=== PATIENT | male | born 1990 | race Caucasian/White ===

== ENCOUNTER 2018-08-28 18:29 | Emergency (ER) | payer SELFPAY ==
--- NOTE | 2018-08-28 18:32 | ER Report ---
History and Physical Time Seen By MD: 18:30 HPI/ROS CHIEF COMPLAINT: had some suicidal thoughts earlier HISTORY OF PRESENT ILLNESS: This is a 28 year old male. He was told by his earlier today that she wanted a divorce. Had left home and walking around town. Did think about suicide briefly, but then said he would not do this. He went to the bar and had a shot. Went to a [facility] and talked with a emergency care tech who recommended that he come up to the hospital to work on getting further help. He has no thoughts of harming others. Thinking about things, he says that the divorce is probably due to his anger and temper and he needs to work on this. He plans to return to [place] with his father for a time. He is willing to do some outpatient counseling. Has no medical problems, although in talking with him it appears he has an undiagnosed Tourettes. His did call the police as he made a comment that was not suicidal, but more like 'life was not worth living' w ithout her, or something like that. REVIEW OF SYSTEMS: Respiratory: No cough, no dyspnea. Cardiovascular: No chest pain, no palpitations. Gastrointestinal: No vomiting, no abdominal pain. Musculoskeletal: No musculoskeletal pain. Allergies: Coded Allergies: No Known Drug Allergies (Unverified , 08/28/18) Home Meds No Active Prescriptions or Reported Meds Reviewed Nurses Notes: Yes Constitutional Vital Sign - Last 24 Hours 08/28/18 08/28/18 08/28/18 08/28/18 18:29 18:39 18:40 18:59 Temp 98.6 Pulse ??? 136 133 Resp 16 B/P (MAP) 119/104 (109) Pulse Ox 92 88 O2 Delivery Room Air 08/28/18 08/28/18 08/28/18 08/28/18 19:00 19:29 19:30 20:00 Pulse 116 B/P (MAP) 109/76 (87) 110/70 (83) 114/63 (80) Pulse Ox 89 08/28/18 20:00 B/P (MAP) 114/63 (80) Physical Exam General Appearance: Alert, anxious and upset about the situation, but cooperative and polite. Eyes: Pupils equal and round no injection. ENT: Normal oral mucosa. Moist mucous membranes. Respiratory: Breathing easily, clear. Cardiac: regular rate and rhythm, normal peripheral perfusion. Neuro: Alert and oriented x 3, no focal deficits. Some complex motor and auditory throat clearing tics noted. Skin: Warm and dry. No rashes or lesions. DIFFERENTIAL DIAGNOSIS: After history and physical exam differential diagnosis was considered for patient with what appears to be an acute adjustment reaction with stress. No suicidal or homicidal ideation. Medical Decision Making Data Points Laboratory Hematology Test 08/28/18 00:00 Urine Color Yellow Urine Clarity Slightly-cloudy Urine pH 5.0 pH (4.8-9.5) Urine Specific Devon 1.027 Urine Protein 100 mg/dL (NEGATIVE) Urine Glucose (UA) Negative mg/dL (NEGATIVE) Urine Ketones Trace mg/dL (NEGATIVE) Urine Blood Small (NEGATIVE) Urine Nitrite Negative (NEGATIVE) Urine Bilirubin Negative (NEGATIVE) Urine Urobilinogen Negative mg/dL (0.2-1.9) Urine Leukocyte Esterase Negative (NEGATIVE) Urine RBC 2 /HPF (0-2/HPF) Urine WBC 4 /HPF (0-5/HPF) Urine Squamous Epithelial Cells None /LPF (</=FEW) Urine Bacteria Negative /HPF (NONE-FEW) Urine Hyaline Casts Few /LPF (NONE-FEW) Urine Mucus Few /HPF (NONE-FEW) Urine Opiates Screen Negative Urine Barbiturates Screen Negative Ur Tricyclic Antidepressants Screen Negative Urine Phencyclidine Screen Negative Urine Amphetamines Screen Negative Urine Benzodiazepines Screen Negative Urine Cocaine Screen Negative Urine Cannabinoids Screen Negative Chemistry Test 08/28/18 00:00 Urine Color Yellow Urine Clarity Slightly-cloudy Urine pH 5.0 pH (4.8-9.5) Urine Specific Devon 1.027 Urine Protein 100 mg/dL (NEGATIVE) Urine Glucose (UA) Negative mg/dL (NEGATIVE) Urine Ketones Trace mg/dL (NEGATIVE) Urine Blood Small (NEGATIVE) Urine Nitrite Negative (NEGATIVE) Urine Bilirubin Negative (NEGATIVE) Urine Urobilinogen Negative mg/dL (0.2-1.9) Urine Leukocyte Esterase Negative (NEGATIVE) Urine RBC 2 /HPF (0-2/HPF) Urine WBC 4 /HPF (0-5/HPF) Urine Squamous Epithelial Cells None /LPF (</=FEW) Urine Bacteria Negative /HPF (NONE-FEW) Urine Hyaline Casts Few /LPF (NONE-FEW) Urine Mucus Few /HPF (NONE-FEW) Urine Opiates Screen Negative Urine Barbiturates Screen Negative Ur Tricyclic Antidepressants Screen Negative Urine Phencyclidine Screen Negative Urine Amphetamines Screen Negative Urine Benzodiazepines Screen Negative Urine Cocaine Screen Negative Urine Cannabinoids Screen Negative Toxicology Test 08/28/18 00:00 Urine Opiates Screen Negative Urine Barbiturates Screen Negative Ur Tricyclic Antidepressants Screen Negative Urine Phencyclidine Screen Negative Urine Amphetamines Screen Negative Urine Benzodiazepines Screen Negative Urine Cocaine Screen Negative Urine Cannabinoids Screen Negative Urinalysis Test 08/28/18 00:00 Urine Color Yellow Urine Clarity Slightly-cloudy Urine pH 5.0 pH (4.8-9.5) Urine Specific Devon 1.027 Urine Protein 100 mg/dL (NEGATIVE) Urine Glucose (UA) Negative mg/dL (NEGATIVE) Urine Ketones Trace mg/dL (NEGATIVE) Urine Blood Small (NEGATIVE) Urine Nitrite Negative (NEGATIVE) Urine Bilirubin Negative (NEGATIVE) Urine Urobilinogen Negative mg/dL (0.2-1.9) Urine Leukocyte Esterase Negative (NEGATIVE) Urine RBC 2 /HPF (0-2/HPF) Urine WBC 4 /HPF (0-5/HPF) Urine Squamous Epithelial Cells None /LPF (</=FEW) Urine Bacteria Negative /HPF (NONE-FEW) Urine Hyaline Casts Few /LPF (NONE-FEW) Urine Mucus Few /HPF (NONE-FEW) ED Course/Re-evaluation ED Course Behavioral health came and talked with the patient. He will be following up with [facility] tomorrow and then likely going to [place]. Decision to Disposition Date: Aug 28, 2018 Decision to Disposition Time: 21:07 Depart Departure Latest Vital Signs Vital Signs Date Time Temp Pulse Resp B/P (MAP) Pulse Ox O2 Delivery O2 Flow Rate FiO2 08/28/18 20:00 114/63 (80) 08/28/18 19:29 116 89 08/28/18 18:40 98.6 16 Room Air Impression: Primary Impression: Stress and adjustment reaction Condition: Improved Disposition: HOME OR SELF-CARE New Scripts No Active Prescriptions or Reported Meds Patient Instructions: Stress (ED) Additional Instructions: Follow-up with behavioral health for counseling; [facility] as discussed tonight. Return if having suicidal thoughts for admission to the hospital. SANTI BROWNE MD Aug 28, 2018 18:31
[2018-08-28 20:00] VITALS: BP 114/63
== END 2018-08-28 21:18 | disposition home or self-care (01) ==
LOC: ER 18:52
DX: F43.9 Reaction to severe stress, unspecified (principal); F43.20 Adjustment disorder, unspecified
CPT/HCPCS: 80305; 81001; 99283